=== PATIENT | female | born 1955 | race Caucasian/White ===

== ENCOUNTER → 2023-08-03 07:58 | Outpatient (REF) | payer OTHER, SELFPAY | LOC: WDC 07:58 | PROVIDERS: ATTENDING PHYSICIAN Internal Medicine; FAMILY PHYSICIAN Family Medicine | DX: Z12.31 Encounter for screening mammogram for malignant neoplasm of breast (principal) | CPT/HCPCS: 77063; 77067 ==

== ENCOUNTER → 2024-08-08 08:19 | Outpatient (REF) | payer MEDICARE, BC, SELFPAY | LOC: WDC 08:19 | PROVIDERS: ATTENDING PHYSICIAN Family Medicine | DX: Z12.31 Encounter for screening mammogram for malignant neoplasm of breast (principal); Z12.39 Encounter for other screening for malignant neoplasm of breast | CPT/HCPCS: 77063; 77067 ==